=== PATIENT | male | born 1985 | race African-American/Black ===

== ENCOUNTER 2017-02-19 22:14 | Emergency (ER) | payer SELFPAY ==
[2017-02-19 22:21] VITALS: BP 139/77
[2017-02-19] MEDS ORDERED: SULFAMETHOXAZOLE/TRIMETHOPRIM 800-160 MG TABLET PO ONE (23:15)
[2017-02-19] MEDS ORDERED: IBUPROFEN 600 MG TABLET PO ONE (23:15)
--- NOTE | 2017-02-19 23:16 | ER Document Report ---
ED Skin Rash/Insect Bite/Abscs - General Chief Complaint: Abscess Stated Complaint: INSECT BITE Time Seen by Provider: 02/19/17 23:10 Mode of Arrival: Ambulatory Information source: Patient TRAVEL OUTSIDE OF THE [place] IN LAST 30 DAYS: No - HPI Patient complains to provider of: Tender/swollen area Onset: Other - 3 days Onset/Duration: Gradual, Persistent Quality of pain: Achy Severity: Moderate Pain Level: 3 Skin Character: Abscess Skin Temperature: Warm Quality of rash: Painful Identify cause: No Similar symptoms previously: Yes Recently seen / treated by doctor: No Notes: It is a 31-year-old male who presents to the emergency room complaining of tender swollen area to the mid lower abdominal wall that has been present over the past 3 days, states he squeezed it 3 days ago to try to express some pus but was unable to, he denies any injury, is concerned that maybe he got bit by some type of an insect, 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, has a history of similar symptoms previously - Related Data Allergies/Adverse Reactions: erythromycin base [Erythromycin Base] Allergy (Verified 05/03/14 16:03) Past Medical History - General Information source: Patient - Social History Smoking Status: Unknown if Ever Smoked Family History: None Patient has suicidal ideation: No Patient has homicidal ideation: No Renal/ Medical History: Denies: Hx Peritoneal Dialysis Past Surgical History: Reports: Hx Tonsillectomy Review of Systems - Review of Systems Constitutional: No symptoms reported EENT: No symptoms reported Cardiovascular: No symptoms reported Respiratory: No symptoms reported Gastrointestinal: No symptoms reported Genitourinary: No symptoms reported Male Genitourinary: No symptoms reported Musculoskeletal: No symptoms reported Skin: See HPI Hematologic/Lymphatic: No symptoms reported Neurological/Psychological: No symptoms reported -: Yes All other systems reviewed and negative Physical Exam - Vital signs Vitals: Temp Pulse Resp BP Pulse Ox 98.4 F 97 16 139/77 H 98 02/19/17 22:17 02/19/17 22:17 02/19/17 22:17 02/19/17 22:17 02/19/17 22:17 - Notes Notes: - General General appearance: Appears well, Alert In distress: None - HEENT Head: Normocephalic, Atraumatic Eyes: Normal Conjunctiva: Normal Extraocular movements intact: Yes Eyelashes: Normal Pupils: PERRL - Respiratory Respiratory status: No respiratory distress - Cardiovascular Rhythm: Regular - Abdominal Inspection: 2 cm firm erythematous tender swollen area to mid suprapubic region on the lower abdomen, tenderness to palpate, no fluctuance - Back Back: Normal - Extremities General upper extremity: Normal inspection General lower extremity: Normal inspection - Neurological Neuro grossly intact: Yes Orientation: AAOx4 [place] Coma Scale Eye Opening: Spontaneous [place] Coma Scale Verbal: Oriented [place] Coma Scale Motor: Obeys Commands [place] Coma Scale Total: 15 - Psychological Associated symptoms: Normal affect, Normal mood - Skin Skin Temperature: Warm Skin Moisture: Dry Skin Color: Normal Course - Re-evaluation Re-evalutation: 02/19/17 23:52 Symptoms consistent with early abscess, there is no fluctuance to the area of concern and therefore I&D was not performed today, however patient was advised to place warm compresses, take antibiotics as prescribed or return if symptoms worsen, patient acknowledges understanding and agreement with this plan - Vital Signs Vital signs: Temp Pulse Resp BP Pulse Ox 98.4 F 97 16 139/77 H 98 02/19/17 22:17 02/19/17 22:17 02/19/17 22:17 02/19/17 22:17 02/19/17 22:17 Discharge - Discharge Clinical Impression: Abdominal wall abscess Condition: Stable Disposition: HOME, SELF-CARE Instructions: Abscess ([facility]), Trimethoprim-Sulfa ([facility]) Additional Instructions: Follow up with your primary care provider in one to 2 days. Return to the emergency room immediately if symptoms worsen or any additional concerns. Prescriptions: Sulfamethoxazole/Trimethoprim [Bactrim Ds Tablet] 1 each PO BID #20 tablet
== END 2017-02-19 23:25 | disposition home or self-care (01) ==
LOC: ER 22:14
DX: L02.211 Cutaneous abscess of abdominal wall (principal); R10.30 Lower abdominal pain, unspecified; Z88.3 Allergy status to other anti-infective agents
CPT/HCPCS: 99282

== ENCOUNTER 2019-05-15 07:29 | Emergency (ER) | payer SELFPAY ==
--- NOTE | 2019-05-15 09:31 | ER Document Report ---
ED General - General Chief Complaint: Laceration Stated Complaint: ARM LACERATION Time Seen by Provider: 05/15/19 09:30 Primary Care Provider: YANNA CARTY MD [Primary Care Provider] - Follow up as needed TRAVEL OUTSIDE OF THE [place] IN LAST 30 DAYS: No - HPI Notes: 34-year-old male to the emergency department with complaints of a laceration to his left forearm that occurred just prior to arrival. States he was packing his truck when he tripped and fell cutting his arm on a piece of metal. He states that he has had a tetanus in the last 5 years. He denies any other injuries. He does report a insect bite that has been infected to his left hand as well but seems to be doing better. He denies any fevers, chills, decrease in range of motion. He is right-hand dominant. - Related Data Allergies/Adverse Reactions: erythromycin base [Erythromycin Base] Allergy (Verified 05/03/14 16:03) Past Medical History - General Information source: Patient - Social History Smoking Status: Never Smoker Frequency of alcohol use: None Drug Abuse: None Family History: Reviewed & Not Pertinent Patient has suicidal ideation: No Patient has homicidal ideation: No Renal/ Medical History: Denies: Hx Peritoneal Dialysis Past Surgical History: Reports: Hx Tonsillectomy Review of Systems - Review of Systems Constitutional: denies: Chills, Fever EENT: No symptoms reported Cardiovascular: denies: Chest pain, Palpitations, Heart racing, Dyspnea, Syncope, Dizziness Respiratory: denies: Cough, Short of breath Gastrointestinal: denies: Abdominal pain, Diarrhea, Nausea, Vomiting Musculoskeletal: See HPI, Other - Forearm pain Skin: Other - Laceration to left forearm Hematologic/Lymphatic: No symptoms reported Neurological/Psychological: No symptoms reported -: Yes All other systems reviewed and negative Physical Exam - Vital signs Vitals: Temp Pulse Resp BP Pulse Ox 97.7 F 70 16 143/74 H 99 05/15/19 07:34 05/15/19 07:34 05/15/19 07:34 05/15/19 07:34 05/15/19 07:34 Interpretation: Hypertensive - General General appearance: Appears well, Alert In distress: None - HEENT Head: Normocephalic, Atraumatic Eyes: Normal Pupils: PERRL - Respiratory Respiratory status: No respiratory distress Chest status: Nontender Breath sounds: Normal Chest palpation: Normal - Cardiovascular Rhythm: Regular Heart sounds: Normal auscultation Murmur: No - Back Back: Normal, Nontender - Extremities Forearm: Tender, Laceration - To the dorsal aspect of the left forearm there is an elliptical flap-like laceration. The laceration extends down to the fascia but does not go into the muscle. There is slight oozing from the site. Patient has full range of motion of the forearm against resistance in supination, pronation, extension, and flexion. He has mild tenderness to palpation over the site of the laceration. 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 Radial pulses are intact and equal. Cap refill is less than 2 seconds. Hand: Other - There is a healing insect bite to the back of the left hand with no purulent drainage. It is not indurated or erythematous. There is no streaking erythema to the back of the hand. - Neurological Neuro grossly intact: Yes Cognition: Normal Orientation: AAOx4 [place] Coma Scale Eye Opening: Spontaneous [place] Coma Scale Verbal: Oriented [place] Coma Scale Motor: Obeys Commands [place] Coma Scale Total: 15 Speech: Normal Cranial nerves: Normal Cerebellar coordination: Normal Motor strength normal: LUE, RUE, LLE, RLE Additional motor exam normals: Equal ice hockey coach. No: Pronator drift Sensory: Normal - Psychological Associated symptoms: Normal affect, Normal mood - Skin Skin Temperature: Warm Skin Moisture: Dry Skin Color: Normal Skin irregularity: Laceration - See musculoskeletal for further discussion on laceration to the left dorsal forearm. Course - Re-evaluation Re-evalutation: 05/15/19 11:18 Impression: Left dorsal forearm laceration. Repaired the laceration with 12 interrupted simple sutures. Patient tolerated the procedure well. We will have him follow with his primary care in [address] on prophylactic antibiotics. He is up-to-date on his tetanus. Patient agrees with plan. - Vital Signs Vital signs: Temp Pulse Resp BP Pulse Ox 97.7 F 70 16 143/74 H 99 05/15/19 07:34 05/15/19 07:34 05/15/19 07:34 05/15/19 07:34 05/15/19 07:34 Procedures - Laceration/Wound Repair Left Dorsal Arm Time completed: 11:19 Wound length (cm): 4 Wound's Depth, Shape: Superficial, Flap. No: Into muscle Laceration pre-procedure: Sterile PPE donned, Betadine prep applied, Sterile drapes applied, Shur-Clens applied Anesthetic type: 1% Lidocaine w/epi Volume Anesthetic (mLs): 6 Wound explored: No foreign body removed Irrigated w/ Saline (mLs): 200 Wound Debrided: Minimal Wound Repaired With: Sutures Suture Size/Type: 3:0 Number of Sutures: 12 Layer Closure?: No Post-procedure wound care: Sterile dressing applied Post-procedure NV exam normal: Yes Complications: No Discharge - Discharge Clinical Impression: Elevated blood pressure reading Forearm laceration Qualifiers: Encounter type: initial encounter Laterality: left Qualified Code(s): S51.812A - Laceration without foreign body of left forearm, initial encounter Condition: Stable Disposition: HOME, SELF-CARE Instructions: Laceration Care ([facility]) Additional Instructions: Keep wound clean and dry. Cover the wound daily. May clean once daily with warm soapy water and then pat dry and cover with dressing. Complete antibiotics. Return if any worsening symptoms such as fevers, worsening pain, redness around the site or streaking redness up the arm down the arm, purulent drainage. Follow-up with your primary care doctor in 10 days for suture removal. Prescriptions: Cephalexin Monohydrate [Keflex 500 mg Capsule] 500 mg PO QID #28 capsule Referrals: YANNA CARTY MD [Primary Care Provider] - 05/25/19 (For suture removal. )
[2019-05-15] MEDS ORDERED: LIDOCAINE 1%/EPINEPHRINE INJ 20 ML VIAL INJ ONE (09:46)
[2019-05-15] MEDS ORDERED: ACETAMINOPHEN 325 MG TABLET PO ONE (09:47)
[2019-05-15 11:40] VITALS: BP 91/78
== END 2019-05-15 11:40 | disposition home or self-care (01) ==
LOC: ER 07:29
DX: S51.812A Laceration without foreign body of left forearm, initial encounter (principal); W01.119A Fall on same level from slipping, tripping and stumbling with subsequent striking against unspecified sharp object, initial encounter; R03.0 Elevated blood-pressure reading, without diagnosis of hypertension
CPT/HCPCS: 99282; 12002; J3490

== ENCOUNTER 2019-07-09 05:05 | Emergency (ER) | payer SELFPAY ==
[2019-07-09 05:11] VITALS: BP 144/78
[2019-07-09] MEDS ORDERED: LIDOCAINE 1%/EPINEPHRINE INJ 20 ML VIAL INJ ONE (08:35)
--- NOTE | 2019-07-09 08:43 | ER Document Report ---
HPI - HPI Time Seen by Provider: 07/09/19 08:25 Pain Level: 3 Context: Patient is a 34-year-old male who presents to emergency department with a chief complaint of lip laceration. Patient reports around 430 this morning he was ambulating around his house getting ready for work when he tripped over his feet and hit his top lip on a metal bar. Patient denies loss of consciousness. Patient states he was not drinking alcohol at that time. Patient denies use of blood thinners. Patient reports a left upper lip laceration. Patient reports his tetanus shot is up-to-date. Patient denies neck pain. Past Medical History - General Information source: Patient - Social History Smoking Status: Current Every Day Smoker Chew tobacco use (# tins/day): No Frequency of alcohol use: None Drug Abuse: None Lives with: Family Family History: Reviewed & Not Pertinent Patient has suicidal ideation: No Patient has homicidal ideation: No - Past Medical History Cardiac Medical History: Reports: None Pulmonary Medical History: Reports: None EENT Medical History: Reports: None Neurological Medical History: Reports: None Endocrine Medical History: Reports: None Renal/ Medical History: Reports: None. Denies: Hx Peritoneal Dialysis Malignancy Medical History: Reports None GI Medical History: Reports: None Musculoskeletal Medical History: Reports None Skin Medical History: Reports None Psychiatric Medical History: Reports: None Traumatic Medical History: Reports: None Infectious Medical History: Reports: None Past Surgical History: Reports: Hx Tonsillectomy Vertical Provider Document - CONSTITUTIONAL Agree With Documented VS: Yes Exam Limitations: No Limitations General Appearance: No Apparent Distress - INFECTION CONTROL TRAVEL OUTSIDE OF THE [place] IN LAST 30 DAYS: No - HEENT HEENT: Normal ENT Exam, Normocephalic, PERRLA Mouth Diagram: 1 - Irregular 1.5 cm laceration to the left upper lip that crosses the ve rmillion border. Notes: No cervical midline tenderness. Tenderness noted to the left side of the maxilla bone. No ecchymosis. Mild edema to left upper lip. - NECK Neck: Normal Inspection - RESPIRATORY Respiratory: Breath Sounds Normal, No Respiratory Distress - CARDIOVASCULAR Cardiovascular: Regular Rate, Regular Rhythm - GI/ABDOMEN Gastrointestinal: Abdomen Soft, Abdomen Non-Tender - NEURO Level of Consciousness: Awake, Alert, Appropriate - DERM Integumentary: Warm, Dry, No Rash Course - Re-evaluation Re-evalutation: 07/09/19 08:46 We will obtain a facial bone x-ray since the patient is having a left maxilla tenderness to palpation. Suture set-up has been ordered. - Vital Signs Vital signs: Temp Pulse Resp BP Pulse Ox 97.7 F 65 17 144/78 H 99 07/09/19 05:09 07/09/19 05:09 07/09/19 05:09 07/09/19 05:09 07/09/19 05:09 - Diagnostic Test Radiology reviewed: Reports reviewed Radiology results interpreted by me: 07/09/19 10:42 Facial Bones X-Ray 07/09/19 08:35 IMPRESSION: NO FOREIGN BODY OR FRACTURE OF THE FACIAL BONES. Procedures - Laceration/Wound Repair Left Face Time completed: 10:20 Wound length (cm): 1.5 Wound's Depth, Shape: Irregular, Flap Laceration pre-procedure: Sterile PPE donned, Sterile drapes applied, Shur-Clens applied Anesthetic type: 1% Lidocaine w/epi Volume Anesthetic (mLs): 2 Wound explored: Clean Irrigated w/ Saline (mLs): 100 Wound Repaired With: Sutures Suture Size/Type: 6:0, Nylon Number of Sutures: 7 Layer Closure?: No Adult Head Front/Back picture: 1 - 1.5 cm laceration repaired with 7 sutures as documented. Discharge - Discharge Clinical Impression: Lip laceration Qualifiers: Encounter type: initial encounter Qualified Code(s): S01.511A - Laceration without foreign body of lip, initial encounter Condition: Stable Disposition: HOME, SELF-CARE Additional Instructions: Please return in 5 days to have the sutures removed. Monitor for signs of infection. You have been placed on prophylactic antibiotics due to the location of the laceration. Please avoid sun exposure as this can increase risk for scarring. LACERATION CARE: Your laceration has been sutured to keep the skin edges aligned during healing. The time of suture removal depends on the nature and location of your cut. Please follow the care instructions the doctor has outlined for you and return for further care, according to the schedule you've been given. Keep the wound and dressing clean. Unless you were told otherwise, you may shower daily, blotting the wound dry with a clean, unused towel. At other times, If the dressing gets wet or blood soaked, remove it and blot the wound dry, then reapply a new dressing. Unless you were instructed otherwise, dressings should be changed at least daily. If any signs of infection occur (swelling, redness, drainage, increasing tenderness, red streaks, tender lumps in the armpit or groin above the laceration, or fever), see the doctor immediately. SOAP CLEANSING: Gently wash the wound daily using a mild soap (like Ivory, Phisoderm, César trogena). Use warm water, rubbing gently until all debris, ooze, and crusting have been washed from the wound. Allow to dry briefly (about 10 minutes) after cleaning. Repeat this cleansing at least three times a day for the first two days and then once or twice a day. ANTIBIOTIC OINTMENT PROTECTION: Your wounds are such that dressing them is not practical or optional. After cleansing, you should apply a thin coating of antibiotic ointment (Bacitracin, not Neosporin) to the wounds at least three times daily. This lessens infection risk, and may decrease the amount of scarring. Use a q-tip or dull butter knife, not your finger, to apply this ointment. Any debris or ooze which builds up in the ointment should be gently rubbed off with a sterile gauze pad. Harder crusting may need to be gently scrubbed off with a clean wash cloth with soap and warm water, perhaps applying a warm, wet wash cloth to the wound for ten minutes first. Development of redness, severe itching, or blistering may mean allergy to the ointment. See the doctor. PROPHYLACTIC ANTIBIOTIC: The antibiotics which have been prescribed are designed to decrease the risk of infection. Only certain types of wounds benefit from this -- the typical cut, scrape, or burn DOES NOT require antibiotics. Of course, infection can still occur despite the use of prophylactic antibiotics. Your wound will heal with less chance of an infectious complication if you take the medication as directed. The most important dose is the FIRST dose, so don't delay filling the prescription! FOLLOW-UP CARE: Your sutures should be removed in __5__ days. To facilitate a timely removal of your sutures, you may return to the Emergency Department at [facility]. You do not need to call for an appointment, but the best time to come in for suture removal is early in the morning. If you have been referred to another physician for follow-up care, call that physicians office for an appointment as you were instructed. If you experience a significant change in your laceration, or if you are concerned there may be an infection (swelling, redness, drainage, increasing tenderness, red streaks, tender lumps in the armpit or groin above the laceration, or fever), return to the Emergency Department immediately re-evaluation. Prescriptions: Cephalexin Monohydrate [Keflex 500 mg Capsule] 500 mg PO BID 5 Days #10 capsule Forms: Smoking Cessation Education Referrals: YANNA CARTY MD [Primary Care Provider] - Follow up as needed
--- NOTE | 2019-07-09 10:09 | RADIOLOGY REPORT (SQ) ---
EXAM DESCRIPTION: FACIAL BONES COMPLETED DATE/TIME: 07/09/2019 9:15 am REASON FOR STUDY: fell, + upper lip laceration, nasal pain COMPARISON: None. NUMBER OF VIEWS: Four view. TECHNIQUE: Images of the facial bones acquired. LIMITATIONS: None. FINDINGS: ORBITS: No fracture. No foreign body. SINUSES: No mucosal thickening. No air fluid levels. FACIAL BONES: No fracture. OTHER: No other significant finding. Limited view of the mandibular condyles bilaterally IMPRESSION: NO FOREIGN BODY OR FRACTURE OF THE FACIAL BONES. TECHNICAL DOCUMENTATION: JOB ID: [id number] [employer]- All Rights Reserved Reading location - IP/workstation name: [email or web address]
== END 2019-07-09 10:57 | disposition home or self-care (01) ==
LOC: ER 05:05
PROC: 0CQ0XZZ Repair Upper Lip, External Approach (ICD-10-PCS; principal; 2019-07-09)
DX: S01.511A Laceration without foreign body of lip, initial encounter (principal); W01.0XXA Fall on same level from slipping, tripping and stumbling without subsequent striking against object, initial encounter; F17.200 Nicotine dependence, unspecified, uncomplicated
CPT/HCPCS: 99283; 70150; 12011; J3490

== ENCOUNTER 2019-07-16 07:58 | Emergency (ER) | payer SELFPAY ==
[2019-07-16 08:03] VITALS: BP 149/78
--- NOTE | 2019-07-16 08:34 | ER Document Report ---
HPI - HPI Pain Level: Denies Notes: Patient is a 34-year-old male who had 7 sutures placed to his left upper lip a week ago presents for suture removal. Patient states that he has not had any complications status post procedure. He is eating and drinking without difficulty. He has not noticed any bleeding or separation of the wound. Denies any headache, fever, neck pain, URI, sore throat, chest pain, palpitations, syncope, cough, shortness of breath, wheeze, dyspnea, abdominal pain, na usea/vomiting/diarrhea, urinary retention, dysuria, hematuria, or rash. - ROS Systems Reviewed and Negative: Yes All other systems reviewed and negative - REPRODUCTIVE Reproductive: DENIES: : Past Medical History - Social History Smoking Status: Current Every Day Smoker Chew tobacco use (# tins/day): No Frequency of alcohol use: None Drug Abuse: None Family History: Reviewed & Not Pertinent Patient has suicidal ideation: No Patient has homicidal ideation: No Renal/ Medical History: Denies: Hx Peritoneal Dialysis Past Surgical History: Reports: Hx Tonsillectomy Vertical Provider Document - CONSTITUTIONAL Agree With Documented VS: Yes Notes: PHYSICAL EXAMINATION: GENERAL: Well-appearing, well-nourished and in no acute distress. HEAD: Atraumatic, normocephalic. EYES: Pupils equal round and reactive to light, extraocular movements intact, sclera anicteric, conjunctiva are normal. ENT: Nares patent and without discharge. oropharynx clear without exudates. No tonsilar hypertrophy or erythema. Moist mucous membranes. NECK: Normal range of motion, supple without lymphadenopathy LUNGS: Breath sounds clear to auscultation bilaterally and equal. No wheezes rales or rhonchi. HEART: Regular rate and rhythm without murmurs, rubs, gallops. SKIN: [address] to left upper lip. No erythema, swelling, induration, purulence, fluctuance, or evidence of wound dehiscence. - INFECTION CONTROL TRAVEL OUTSIDE OF THE [place] IN LAST 30 DAYS: No Course - Re-evaluation Re-evalutation: 07/16/19 08:32 Patient is an afebrile, well-hydrated, 34-year-old male who presents for suture removal. Vitals are acceptable. PE is otherwise unremarkable for any evidence of superimposed infection or wound dehiscence. Sutures removed successfully without any complications. Wound instructions reviewed. Low suspicion for any other systemic or emergent condition at this time. Recheck with your PCM in 3 to 5 days. Return to the ED with any other worsening/concerning symptoms. Patient is in agreement. - Vital Signs Vital signs: Temp Pulse Resp BP Pulse Ox 97.4 F 69 14 149/78 H 97 07/16/19 08:02 07/16/19 08:02 07/16/19 08:02 07/16/19 08:02 07/16/19 08:02 Discharge - Discharge Clinical Impression: Encounter for removal of sutures Condition: Stable Disposition: HOME, SELF-CARE Instructions: Suture Removal Additional Instructions: Keep the skin clean Wash with soap and water Tylenol/ibuprofen if needed Take medication as directed Monitor for any worsening symptoms Recheck with your PCM in 3-5 days Return to the ED with any worsening symptoms and/or development of fever, headache, chest pain, palpitations, syncope, shortness of breath, trouble breathing, abdominal pain, n/v/d, abscess, purulent discharge, red streaks, worsening swelling, or other worsening symptoms that are concerning to you. Forms: Smoking Cessation Education, Elevated Blood Pressure Referrals: NITO FARIA MD [ACTIVE STAFF] - Follow up as needed
== END 2019-07-16 08:41 | disposition home or self-care (01) ==
LOC: ER 07:58
DX: S01.511D Laceration without foreign body of lip, subsequent encounter (principal); X58.XXXD Exposure to other specified factors, subsequent encounter; F17.200 Nicotine dependence, unspecified, uncomplicated
CPT/HCPCS: 99281